=== PATIENT | female | born 1965 | race Caucasian/White ===

== ENCOUNTER → 2017-01-08 | Outpatient (CLI) | payer OTHER ==
[~2017-01-08] MED LIST: AMLO10TA2 PO; BLAC540C4 PO; CHOL100014 PO; CHOL100015 PO; CYCL-259 PO; DESV50TA PO; GABA300C10 PO; HYDR-3237 PO; HYDR25TA6 PO; LORA0.5T PO; OXYC1TAB8 PO; TELM20TA PO; WILD YAM PO
== END | disposition home or self-care (01) ==
LOC: CFH 13:17
PROVIDERS: ATTEND Nurse Practitioner Family
DX: Z12.31 Encounter for screening mammogram for malignant neoplasm of breast (principal)
CPT/HCPCS: 77063; G0202

== ENCOUNTER → 2017-03-28 | Outpatient (CLI) | payer OTHER ==
[~2017-03-28] MED LIST changes: +OMNIPAQUE 350 MG/ML, 100ML BOTTLE ONE
== END | disposition home or self-care (01) ==
LOC: CFH 11:37
PROVIDERS: ATTEND Nurse Practitioner Family
DX: K57.30 Diverticulosis of large intestine without perforation or abscess without bleeding (principal); K76.89 Other specified diseases of liver
CPT/HCPCS: 74177; Q9967

== ENCOUNTER → 2017-12-18 | Outpatient (CLI) | payer OTHER ==
[~2017-12-18] MED LIST changes: -AMLO10TA2 PO; +AMLO10TA6 PO; -OMNIPAQUE 350 MG/ML, 100ML BOTTLE ONE
== END | disposition home or self-care (01) ==
LOC: CFH 09:35
PROVIDERS: ATTEND Pain Medicine Pain Medicine
DX: M51.36 Other intervertebral disc degeneration, lumbar region (principal); M48.07 Spinal stenosis, lumbosacral region; M47.816 Spondylosis without myelopathy or radiculopathy, lumbar region
CPT/HCPCS: 72148

== ENCOUNTER 2019-07-02 14:13 | Emergency (ER) | payer OTHER ==
[~2019-07-02] VITALS: Ht 172.7 cm; Wt 111.4 kg
[~2019-07-02 14:13] MED LIST changes: -AMLO10TA6 PO; +AMLO10TA8 PO
--- NOTE | 2019-07-02 14:53 | NUR ---
PT CAME IN CO OF VERTIGO AND HUMMEL FOR 6 DAYS. "EVERYTIME I MOVE MY HEAD I BECOME NAUSEOUS". PT ACCOMPANIED BY WHO DENIES ANY SLURRING OF HER SPEECH. MD IS BEDSIDE FOR ASSESSMENT
[2019-07-02] MEDS ORDERED: MECLIZINE CHEWABLE 25 MG TAB ONE (14:57)
[2019-07-02] MEDS ORDERED: MECLIZINE CHEWABLE 25 MG TAB PO ONE (15:00)
[2019-07-02 15:23] LABS: BASOPHILS # (AUTO) 0.02 x10^3/uL (0-0.1); BASOPHILS % (AUTO) 0 % (0-1); EOSINOPHILS # (AUTO) 0.09 x10^3/uL (0-0.4); EOSINOPHILS % (AUTO) 2 % (1-7); LYMPHOCYTES # (AUTO) 1.54 x10^3/uL (1-3.4); LYMPHOCYTES % (AUTO) 25 % (22-44); MD NO; MEAN CORPUSCULAR HGB CONC 33.7 g/dL (32.4-35.8); MEAN CORPUSCULAR VOLUME 94.8 fL (80-100); MEAN PLATELET VOLUME 8.2 fL (7.4-10.4); MONOCYTES # (AUTO) 0.47 x10^3/uL (0.2-0.8); MONOCYTES % (AUTO) 8 % (2-9); NEUTROPHILS # (AUTO) 3.98 x10^3/uL (1.8-6.8); NEUTROPHILS % (AUTO) 65 % (42-75); PLATELET COUNT 249 x10^3/uL (130-400); RED BLOOD COUNT 4.52 x10^6/uL (3.82-5.3); RED CELL DISTRIBUTION WIDTH 13.2 % (9.6-15.2)
[2019-07-02 15:33] LABS: ALANINE AMINOTRANSFERASE 29 U/L (12-78); ALBUMIN 3.8 g/dL (3.4-5.0); ANION GAP 5 mmol/L (5-15); CALCIUM 9.1 mg/dL (8.5-10.1); CHLORIDE 106 mmol/L (98-107); CREATININE 0.76 mg/dL (0.55-1.02)
[2019-07-02 15:37] LABS: ALKALINE PHOSPHATASE 52 U/L (45-117); BILIRUBIN,TOTAL 0.3 mg/dL (0.2-1.0); TOTAL PROTEIN 7.3 g/dL (6.4-8.2); TROPONIN I < 0.015 ng/mL (0.000-0.045)
--- NOTE | 2019-07-02 16:08 | NUR ---
PT AMBULATED TO BATHROOM WITH STANDBY ASSIST. BACK RESTING IN BED
[2019-07-02 16:15] VITALS: BP 127/58
[2019-07-02] MEDS ORDERED: DIAZEPAM 5 MG TABLET PO ONE (17:00)
[2019-07-02] MEDS ORDERED: DIAZEPAM 5 MG TABLET ONE (17:05)
--- NOTE | 2019-07-02 17:10 | NUR ---
SEGUNDO MCCLENDON AT BEDSIDE TO DISCUSS POC
[2019-07-02 17:27] LABS: MICROSCOPIC NOT IND
[2019-07-02 17:33] LABS: CULTURE INDICATED? NO
--- NOTE | 2019-07-02 17:55 | NUR ---
DISCHARGE INSTRUCTIONS REVIEWED.
== END 2019-07-02 18:08 | disposition home or self-care (01) ==
LOC: ED 15:05
DX: H81.10 Benign paroxysmal vertigo, unspecified ear (principal); I25.2 Old myocardial infarction; I10 Essential (primary) hypertension; Z90.89 Acquired absence of other organs
CPT/HCPCS: 36415; 80053; 81003; 84484; 85025; 93005; 99284

== ENCOUNTER 2020-02-10 15:28 | Outpatient (CLI) | payer OTHER ==
[~2020-02-10 15:28] MED LIST changes: +AMLO-211 PO; -AMLO10TA8 PO
[2020-02-10] MEDS ORDERED: OMNIPAQUE 350 MG/ML, 100ML BOTTLE ONE (15:45)
== END 2020-02-10 23:59 | disposition home or self-care (01) ==
LOC: CT 15:28
PROVIDERS: ATTEND Nurse Practitioner Family
DX: N83.201 Unspecified ovarian cyst, right side (principal); K76.89 Other specified diseases of liver; Z98.84 Bariatric surgery status; Z90.710 Acquired absence of both cervix and uterus
CPT/HCPCS: 74178; Q9967

== ENCOUNTER → 2020-02-18 | Outpatient (CLI) | payer OTHER | END | disposition home or self-care (01) | LOC: RAD 13:35 → EDSTATUS 14:00 | PROVIDERS: ATTEND Nurse Practitioner Family | DX: N83.201 Unspecified ovarian cyst, right side (principal); Z90.710 Acquired absence of both cervix and uterus | CPT/HCPCS: 76830 ==

== ENCOUNTER → 2020-08-26 | Outpatient (CLI) | payer OTHER ==
[~2020-08-26] MED LIST changes: +BIOT25005 PO; +CHOL10003 PO; +CIDE500T PO; -CYCL-259 PO; +CYCL10TA2 PO; +DESV100T PO; +GABA600T7 PO; +HYDR-3241 PO; +INUL1TAB4 PO; +MELA1TAB8 PO; +MELO15TA24 PO
[2020-08-26 13:53] LABS: BASOPHILS % (AUTO) 0 % (0-1); EOSINOPHILS % (AUTO) 2 % (1-7); LYMPHOCYTES % (AUTO) 25 % (22-44); MEAN CORPUSCULAR HEMOGLOBIN 32.4 pg (27.0-34.8); MEAN CORPUSCULAR HGB CONC 33.8 g/dL (32.4-35.8); MEAN PLATELET VOLUME 7.8 fL (7.4-10.4); MONOCYTES % (AUTO) 7 % (2-9); NEUTROPHILS % (AUTO) 66 % (42-75); PLATELET COUNT 234 x10^3/uL (130-400); RED BLOOD COUNT 4.45 x10^6/uL (3.82-5.3); RED CELL DISTRIBUTION WIDTH 13.2 % (9.6-15.2)
[2020-08-26 13:54] LABS: MD NO
[2020-08-26 14:06] LABS: ALANINE AMINOTRANSFERASE 28 U/L (12-78); ALBUMIN 3.8 g/dL (3.4-5.0); ANION GAP 3 mmol/L (5-15); CHLORIDE 107 mmol/L (98-107); CREATININE 0.69 mg/dL (0.55-1.02)
[2020-08-26 14:10] LABS: ALKALINE PHOSPHATASE 50 U/L (45-117); BILIRUBIN,TOTAL 0.4 mg/dL (0.2-1.0); TOTAL PROTEIN 7.4 g/dL (6.4-8.2)
== END | disposition home or self-care (01) ==
LOC: STAR 13:03
PROVIDERS: ATTEND Obstetrics & Gynecology Gynecology
DX: Z01.818 Encounter for other preprocedural examination (principal); N83.209 Unspecified ovarian cyst, unspecified side; N70.11 Chronic salpingitis; I44.4 Left anterior fascicular block; Z20.822 Contact with and (suspected) exposure to COVID-19
CPT/HCPCS: 36415; 71046; 80053; 84702; 85025; 93005; U0003; U0005

== ENCOUNTER 2020-09-01 10:17 | Day surgery (SDC) | payer OTHER ==
[~2020-09-01] VITALS: Ht 172.7 cm; Wt 103.8 kg
[2020-09-01 10:43] VITALS: BP 146/89
[2020-09-01] MEDS ORDERED: CHLORHEXIDINE 15 ML UDC ONE (10:50)
[2020-09-01] MEDS ORDERED: LACTATED RINGERS 1,000 ML IV SCH (11:00)
[2020-09-01] MEDS ORDERED: CHLORHEXIDINE 15 ML UDC PO ONE (11:00)
[2020-09-01] MEDS ORDERED: BUPIVACAINE/PF 0.25% ONE (11:53)
[2020-09-01] MEDS ORDERED: MANNITOL PMX 20% 0 ML ONE (11:54)
[2020-09-01] MEDS ORDERED: MIDAZOLAM 1 MG/ML, 2ML ONE (11:55)
[2020-09-01] MEDS ORDERED: FENTANYL PF 100 MCG/2ML ONE ×4 (11:56→13:50)
[2020-09-01] MEDS ORDERED: OXYcodone 5 MG/5 ML ORAL.SOL UDC ONE (13:24)
[2020-09-01] MEDS: FENTANYL PF 100 MCG/2ML IV PRN ×4 (13:27→14:04)
[2020-09-01] MEDS ORDERED: DEXAMETHASONE 4 MG/ML, 1ML ONE (13:30)
[2020-09-01] MEDS ORDERED: ONDANSETRON 2MG/ML, 2ML IVPush PRN (13:30)
[2020-09-01] MEDS ORDERED: HYDROcodone/APAP 7.5-325MG/15ML UDC PO PRN (13:30)
[2020-09-01] MEDS ORDERED: ONDANSETRON 2MG/ML, 2ML ONE (13:30)
[2020-09-01] MEDS ORDERED: NEOSTIGMINE 1 MG/ML, 10ML ONE (13:30)
[2020-09-01] MEDS ORDERED: GLYCOPYRROLATE 0.2MG/1ML, 5ML ONE (13:30)
[2020-09-01] MEDS ORDERED: PROPOFOL 10 MG/ML, 20ML ONE (13:30)
[2020-09-01] MEDS ORDERED: METHOCARBAMOL 1,000 MG in DEXTROSE 5% 100 ML IV PRN (13:30)
[2020-09-01] MEDS ORDERED: OXYcodone 5 MG/5 ML ORAL.SOL UDC PO PRN (13:30)
[2020-09-01] MEDS ORDERED: PROMETHAZINE 25 MG/ML, 1ML IVPush PRN (13:30)
[2020-09-01] MEDS ORDERED: HYDROmorphone 1 MG/ML, 1ML INJ IVPush PRN (13:30)
[2020-09-01] MEDS ORDERED: SUCCINYLCHOLINE 20 MG/ML, 10ML ONE (13:30)
[2020-09-01] MEDS ORDERED: ROCURONIUM 10MG/ML,5ML ONE (13:30)
[2020-09-01] MEDS ORDERED: CEFAZOLIN 1,000 MG ONE (13:30)
[2020-09-01] MEDS ORDERED: KETOROLAC 30 MG/1 ML IVPush PRN (13:30)
[2020-09-01] MEDS ORDERED: KETOROLAC 30 MG/1 ML ONE (13:59)
== END 2020-09-01 15:38 | disposition home or self-care (01) ==
LOC: OUT 10:17
PROVIDERS: ATTEND Obstetrics & Gynecology Gynecology
DX: N83.202 Unspecified ovarian cyst, left side (principal); N70.11 Chronic salpingitis; N73.6 Female pelvic peritoneal adhesions (postinfective); I10 Essential (primary) hypertension; I25.2 Old myocardial infarction; G43.909 Migraine, unspecified, not intractable, without status migrainosus; J45.909 Unspecified asthma, uncomplicated; Z79.1 Long term (current) use of non-steroidal anti-inflammatories (NSAID); Z79.891 Long term (current) use of opiate analgesic; Z79.899 Other long term (current) drug therapy; Z85.3 Personal history of malignant neoplasm of breast; Z88.8 Allergy status to other drugs, medicaments and biological substances; Z90.49 Acquired absence of other specified parts of digestive tract; Z90.710 Acquired absence of both cervix and uterus
CPT/HCPCS: 36415; 58661; 86850; 86900; 88305; J0330; J0690; J1100; J1885; J2250; J2405; J2704; J2710; J3010; J7120; S2900

== ENCOUNTER 2020-11-25 14:57 | Outpatient (CLI) | payer OTHER ==
[2020-11-25] MEDS ORDERED: OMNIPAQUE 350 MG/ML, 100ML BOTTLE ONE (16:31)
== END 2020-11-25 23:59 | disposition home or self-care (01) ==
LOC: RAD 14:57
PROVIDERS: ATTEND Nurse Practitioner Family
DX: I72.2 Aneurysm of renal artery (principal); K76.89 Other specified diseases of liver
CPT/HCPCS: 74175; Q9967

== ENCOUNTER 2020-12-06 08:50 | Emergency (ER) | payer OTHER ==
[~2020-12-06] VITALS: Ht 172.7 cm; Wt 108.0 kg
[2020-12-06 10:07] LABS: ALANINE AMINOTRANSFERASE 26 U/L (12-78); ALBUMIN 3.9 g/dL (3.4-5.0); ANION GAP 4 mmol/L (5-15); CALCIUM 9.7 mg/dL (8.5-10.1); CHLORIDE 106 mmol/L (98-107); CREATININE 0.73 mg/dL (0.55-1.02)
[2020-12-06 10:10] LABS: ALKALINE PHOSPHATASE 58 U/L (45-117); BILIRUBIN,TOTAL 0.5 mg/dL (0.2-1.0); TOTAL PROTEIN 7.8 g/dL (6.4-8.2)
[2020-12-06 10:22] LABS: BASOPHILS % (AUTO) 0 % (0-1); EOSINOPHILS % (AUTO) 0 % (1-7); LYMPHOCYTES % (AUTO) 13 % (22-44); MEAN CORPUSCULAR HEMOGLOBIN 31.4 pg (27.0-34.8); MEAN CORPUSCULAR HGB CONC 33.3 g/dL (32.4-35.8); MEAN PLATELET VOLUME 8.5 fL (7.4-10.4); MONOCYTES % (AUTO) 7 % (2-9); NEUTROPHILS % (AUTO) 80 % (42-75); PLATELET COUNT 234 x10^3/uL (130-400); RED BLOOD COUNT 4.39 x10^6/uL (3.82-5.3); RED CELL DISTRIBUTION WIDTH 13.3 % (9.6-15.2)
[2020-12-06 10:29] LABS: MICROSCOPIC INDICATED
[2020-12-06 11:36] VITALS: BP 131/62
== END 2020-12-06 11:38 | disposition home or self-care (01) ==
LOC: ED 09:14
DX: N30.01 Acute cystitis with hematuria (principal)
CPT/HCPCS: 36415; 80053; 81001; 85025; 87086; 99283